=== PATIENT | male | born 1950 | race Caucasian/White ===

== ENCOUNTER 2020-12-04 01:04 | Day surgery (SDC) | payer OTHER, MEDICARE, SELFPAY ==
[2020-11-25 09:48] VITALS: BMI 27.6
[2020-12-04 07:46] VITALS: BP 144/93; PULSE 69; RESP 18; TEMP 36.3; O2SAT 96; BMI 26.7
--- NOTE | 2020-12-04 07:54 | PM.HPGS ---
History of Present Illness History of Present Illness Consent: Risks, benefits, and alternatives have been discussed and questions answered. Patient agrees to proceed with procedure. Chief complaint: familyhx colon caz85.038 hx of colon polyps z86.01 Narrative: Birgid Yoder is a 70 year old male Here for colon cancer screening. He has had polyps removed in the past, 7 years ago. Also his sister had colon cancer Review of Systems Review of Systems: All systems reviewed & are unremarkable except as noted in HPI and below PMFSH Family History Family History Mother Patient's mother is in good health Sibling Carcinoma of colon Father Family history of pancreatic cancer Patient's father is Social History Social History Smoking status: Never smoker Second hand tobacco smoke exposure: Yes Alcohol intake: current Drinks per week: 3 Substance use: never Substance use type: does not use Living arrangements: with family Gender identity (if verbalized by the patient): Male Sexual Orientation (if Verbalized by the Patient): Straight or Heterosexual Spiritual care concerns: No Meds Home Medications and Allergies Home Medications Medication Instructions Recorded Confirmed Type amlodipine 10 mg-olmesartan 40 mg 1 tablet PO DAILY 09/24/20 11/25/20 History tablet hydrochlorothiazide 12.5 mg tablet 12.5 mg PO DAILY #30 tablet 09/24/20 11/25/20 Rx testosterone 1 % (50 mg/5 gram) 50 mg TRANSDERMAL 3XW 09/24/20 11/25/20 History transdermal gel packet Allergies Allergy/AdvReac Type Severity Reaction Status Date / Time No Known Allergies Allergy Verified 12/04/20 07:45 Vital Signs Vital Signs - 24 hr 12/04/20 07:46 Temperature 36.3 C L Pulse Rate 69 Respiratory Rate 18 Blood Pressure 144/93 H Pulse Oximetry 96 Exam Resp: Auscultation: clear to auscultation bilaterally Cardio: Rate: regular rate Rhythm: regular rhythm GI: GI Palp: Yes Soft to palpation and No Tenderness to palpation present (GI) Assessment and Plan Assessment and plan (1) Colon cancer screening: Code(s): Z12.11 - Encounter for screening for malignant neoplasm of colon Status: Acute Assessment and Plan: Colonoscopy with possible biopsy or polypectomy or cautery or injection of substances.
[2020-12-04] MEDS: LACTATED RINGERS 1,000 ML 150 ML IV CONT (07:58)
--- NOTE | 2020-12-04 08:10 | WPDANESEPPF ---
Anes - Initial Pre Proc Eval Procedure: Operation Date: 12/04/20 08:30 Proposed Procedures p Screening Colonoscopy - Eliseo Noonan MD Date/Time: 12/04/20 08:10 Surgeon: Eliseo Noonan MD Pre Op Diagnosis: familyhx colon caz85.038 hx of colon polyps z86.01 Patient Data Age: 70 Gender: M Height: 1.8 m Weight: 86.9 kg Last Vital Signs Temp 97.4 F L 12/04/20 07:46 Pulse 69 12/04/20 07:46 Resp 18 12/04/20 07:46 BP 144/93 H 12/04/20 07:46 Pulse Ox 96 12/04/20 07:46 Allergies Allergy/AdvReac Type Severity Reaction Status Date / Time No Known Allergies Allergy Verified 12/04/20 07:45 Home Medications Medication Instructions Recorded Confirmed Type amlodipine 10 mg-olmesartan 40 mg 1 tablet PO DAILY 09/24/20 11/25/20 History tablet hydrochlorothiazide 12.5 mg tablet 12.5 mg PO DAILY #30 tablet 09/24/20 11/25/20 Rx testosterone 1 % (50 mg/5 gram) 50 mg TRANSDERMAL 3XW 09/24/20 11/25/20 History transdermal gel packet Patient hx anesthesia problems: none Family hx anesthesia problems: none Results Review: All pre-operative results and documents have been reviewed as part of the pre-operative evaluation. [facility] Past Medical History Medical History (Updated 12/04/20 @ 08:05 by Alok Mcgraw MD) Hypertension Family History Family History Mother Patient's mother is in good health Sibling Carcinoma of colon Father Family history of pancreatic cancer Patient's father is Social History Social History Smoking status: Never smoker Second hand tobacco smoke exposure: Yes Alcohol intake: current Drinks per week: 3 Substance use: never Substance use type: does not use Living arrangements: with family Gender identity (if verbalized by the patient): Male Sexual Orientation (if Verbalized by the Patient): Straight or Heterosexual Spiritual care concerns: No Anes - Eval Final PreProcedure Day of Procedure 12/04/20 08:10 Patient weight: overweight Heart: regular rate and rhythm Lungs: clear to auscultation Airway: Mallampati scale class II Neurological: alert and oriented Last oral intake: >/= 8 hours ASA classification: II Emergent: no Anesthetic plan: proceed Anesthesia type and monitoring: general GIVS and standard monitoring Results Review: All pre-operative results and documents have been reviewed as part of the pre-operative evaluation. Informed Consent: The patient's anesthetic plan and its attendant risks and benefits were discussed with the patient/family/POA. Questions were solicited and answers provided to the satisfaction of the patient/family/POA.
[2020-12-04 08:39] VITALS: BP 105/69; PULSE 70; RESP 20; O2SAT 96
[2020-12-04 08:49] VITALS: BP 112/74; PULSE 60; RESP 18; O2SAT 95
[2020-12-04 08:59] VITALS: BP 132/91; PULSE 54; RESP 20; O2SAT 99
== END 2020-12-04 09:11 | disposition home or self-care (01) ==
PROVIDERS: PCP Internal Medicine; Visit Provider Internal Medicine Gastroenterology
PROC: 0DJD8ZZ Inspection of Lower Intestinal Tract, Via Natural or Artificial Opening Endoscopic (ICD-10-PCS; CPT 45378; principal; 2020-12-04 08:30)
DX: Z12.11 Encounter for screening for malignant neoplasm of colon (principal); D12.3 Benign neoplasm of transverse colon; K57.30 Diverticulosis of large intestine without perforation or abscess without bleeding; Z98.0 Intestinal bypass and anastomosis status; Z90.49 Acquired absence of other specified parts of digestive tract; I10 Essential (primary) hypertension
CPT/HCPCS: 45385; 88305; J2704; J7120